=== PATIENT | female | born 1935 | race Two or more races ===

== ENCOUNTER 2018-03-04 11:20 | Inpatient (IN) | payer OTHER ==
[~2018-03-04] VITALS: Ht 157.5 cm; Wt 57.2 kg
[~2018-03-04 11:20] MED LIST: ACYCLOVIR800 MG PO; ZOVIRAX5 GM TP
[2018-03-04] MEDS ORDERED: METFORMIN HYDRO25 G1 (11:31)
[2018-03-04] MEDS ORDERED: PNEU16DI2 (11:32)
[2018-03-11] MEDS ORDERED: Diflucan 100MG TABLE PO (08:19)
[2018-03-11] MEDS ORDERED: Pulmicort 0.5 MG/2 M IH (08:20)
[2018-03-11] MEDS ORDERED: FAMOTIDINE20 MG/2 M1 IV (08:20)
[2018-03-11] MEDS ORDERED: Xopenex 1.25 MG/3 ML IH (08:20)
[2018-03-11] MEDS ORDERED: TUSSI-PRES LIQ118 ML PO (08:20)
[2018-03-11] MEDS ORDERED: BACTRIM DS TAB1 EACH PO (08:22)
== END 2018-03-11 12:20 | disposition home or self-care (01) | DRG 194 ==
LOC: ER 11:20 → MEDI 19:18
PROC: 4A033R1 Measurement of Arterial Saturation, Peripheral, Percutaneous Approach (ICD-10-PCS; principal; 2018-03-04)
DX: J18.1 Lobar pneumonia, unspecified organism (principal); J45.41 Moderate persistent asthma with (acute) exacerbation; D64.89 Other specified anemias; K27.7 Chronic peptic ulcer, site unspecified, without hemorrhage or perforation; E11.9 Type 2 diabetes mellitus without complications; I10 Essential (primary) hypertension; E04.1 Nontoxic single thyroid nodule; Z72.0 Tobacco use

== ENCOUNTER 2019-10-14 11:41 | Outpatient (CLI) | payer OTHER ==
[~2019-10-14 11:41] MED LIST changes: +BACTRIM DS TAB1 EACH PO; +Diflucan 100MG TABLE PO; +FAMOTIDINE20 MG/2 M1 IV; +METFORMIN HYDRO25 G1; +PNEU16DI2; +Pulmicort 0.5 MG/2 M IH; +TUSSI-PRES LIQ118 ML PO; +Xopenex 1.25 MG/3 ML IH
== END 2019-10-14 11:48 | disposition home or self-care (01) ==
LOC: EKG 11:41
PROVIDERS: ATTEND Internal Medicine Cardiovascular Disease
DX: I10 Essential (primary) hypertension (principal)

== ENCOUNTER 2020-05-18 12:05 | Inpatient (IN) | payer OTHER ==
[~2020-05-18] VITALS: Ht 154.9 cm; Wt 52.2 kg
[2020-05-19] MEDS ORDERED: AMLODIPINE BESYL5 MG (08:15)
[2020-05-19] MEDS ORDERED: BETAMETHASONE D30 ML (08:15)
[2020-05-19] MEDS ORDERED: METFORMIN HCL500 M4 (08:15)
[2020-05-19] MEDS ORDERED: LEVOTHYROXINE25 MC1 (08:15)
[2020-05-19] MEDS ORDERED: OMEPRAZOLE20 MG (08:16)
[2020-05-19] MEDS ORDERED: SIMVASTATIN40 MG (08:16)
[2020-05-19] MEDS ORDERED: MONTELUKAST SOD10 MG (08:16)
[2020-05-19] MEDS ORDERED: LEVALBUTER1.25 MG/3 IH (08:17)
[2020-05-19] MEDS ORDERED: BUDESONIDE0.5 MG/2 M (08:20)
[2020-05-19] MEDS ORDERED: FLUCONAZOLE100 MG (08:20)
== END 2020-05-20 09:16 | disposition home or self-care (01) | DRG 811 ==
LOC: SEC-K 12:05 → MEDI 12:05
PROVIDERS: ADMIT Internal Medicine Cardiovascular Disease; ATTEND Internal Medicine Cardiovascular Disease
PROC: 30233N1 Transfusion of Nonautologous Red Blood Cells into Peripheral Vein, Percutaneous Approach (ICD-10-PCS; principal; 2020-05-18)
DX: D64.89 Other specified anemias (principal); J18.9 Pneumonia, unspecified organism; E11.9 Type 2 diabetes mellitus without complications; Z79.4 Long term (current) use of insulin; K27.9 Peptic ulcer, site unspecified, unspecified as acute or chronic, without hemorrhage or perforation

== ENCOUNTER 2020-09-27 07:21 | Day surgery (SDC) | payer OTHER ==
[~2020-09-27 07:21] MED LIST changes: +AMLODIPINE BESYL5 MG; +BETAMETHASONE D30 ML; +BUDESONIDE0.5 MG/2 M; +FLUCONAZOLE100 MG; +LEVALBUTER1.25 MG/3 IH; +LEVOTHYROXINE25 MC1; +METFORMIN HCL500 M4; +MONTELUKAST SOD10 MG; +OMEPRAZOLE20 MG; +SIMVASTATIN40 MG
[2020-09-28] MEDS ORDERED: METFORMIN HCL500 M3 (12:34)
[2020-09-28] MEDS ORDERED: LEVO-T25 MCG (12:35)
== END 2020-09-27 13:35 | disposition home or self-care (01) ==
LOC: AMB-ENDOS 07:21
PROVIDERS: ATTEND Surgery
DX: D12.3 Benign neoplasm of transverse colon (principal); D12.4 Benign neoplasm of descending colon; D12.5 Benign neoplasm of sigmoid colon; K62.4 Stenosis of anus and rectum; Z20.822 Contact with and (suspected) exposure to COVID-19

== ENCOUNTER 2020-09-28 12:22 | Inpatient (IN) | payer OTHER ==
[~2020-09-28] VITALS: Ht 152.4 cm; Wt 54.4 kg
[2020-09-28] MEDS ORDERED: METFORMIN HCL500 M3 (12:34)
[2020-09-28] MEDS ORDERED: LEVO-T25 MCG (12:35)
== END 2020-10-01 16:41 | disposition home or self-care (01) | DRG 390 ==
LOC: ER → SURH 22:37 → SURG 22:37 → SURH 09-29 01:41
PROVIDERS: ADMIT Surgery; ATTEND Surgery
PROC: BW2110Z Computerized Tomography (CT Scan) of Abdomen and Pelvis using Low Osmolar Contrast, Unenhanced and Enhanced (ICD-10-PCS; principal; 2020-09-29)
DX: K56.699 Other intestinal obstruction unspecified as to partial versus complete obstruction (principal); R10.9 Unspecified abdominal pain; Z20.822 Contact with and (suspected) exposure to COVID-19; I10 Essential (primary) hypertension; E11.9 Type 2 diabetes mellitus without complications

== ENCOUNTER 2023-07-08 16:03 | Inpatient (IN) | payer OTHER ==
[~2023-07-08] VITALS: Ht 157.5 cm; Wt 45.4 kg
[~2023-07-08 16:03] MED LIST changes: +LEVO-T25 MCG; +METFORMIN HCL500 M3
--- NOTE | 2023-07-08 16:29 | NUR ---
PACIENTE ALERTA Y ORIENTADA X 3. REFIERE HACE 1 MES DOLOR ABDOMINAL POR DIVERTICULOS Y DESDE ESTELLA VOMITOS Y DIARREAS X 1.
[2023-07-08] MEDS ORDERED: KETOROLAC TROMETHAMINE 15 MG VIAL IV ONE (17:00)
[2023-07-08] MEDS ORDERED: 0.9 % SODIUM CHLORIDE 1,000 ML IV ONE (17:00)
[2023-07-08] MEDS ORDERED: FAMOTIDINE/PF 20 MG/2 ML VIAL IV ONE (17:00)
[2023-07-08 17:11] LABS: HEMOGLOBIN 11.1 g/dL (12.0-15.00); MEAN CELL VOLUME 72.5 fL (80.00-100.00); MEAN CORPUSCULAR HEMOGLOBIN 23.6 pg (27.00-32.0); MEAN CORPUSCULAR HGB CONC 32.5 g/dl (32.0-36.0); PLATELET COUNT 506 K/uL (150-450); RED BLOOD COUNT 4.69 M/uL (4.00-6.00); RED CELL DISTRIBUTION WIDTH 20.3 % (11.5-14.5)
--- NOTE | 2023-07-08 17:20 | NUR ---
SE LE ORIENTA A PTE SOBRE TRATAMIENTO E INSTRUCCIONES A SEGUIR, YVONNE REFIERE ENTENDER. SE COLECTA MUESTRAS, SE CANALIZA Y SE ADMINISTRA MEDICAMENTO KLEBER ORDEN MEDICA
[2023-07-08 17:40] LABS: ALBUMIN 1.9 gm/dL (3.4-5.0); ALKALINE PHOSPHATASE 100 U/L (50-136); AMYLASE 22 U/L (25-115); ANION GAP 6 (10.0-20.0); AST/SGOT 15 U/L (15-37); BILIRUBIN TOTAL 0.42 mg/dL (0.3-1.2); BLOOD UREA NITROGEN 20 mg/dL (7-18); BUN CREA RATIO 33 (7.0-25.0); CALCIUM 8.4 mg/dL (8.5-10.1); CARBON DIOXIDE 29 mEq/L (21-32); CHLORIDE 102 mmol/L (98-107); GFR 95.01; GLOBULINA 5.8 G/DL (2.4-3.5); GLUCOSE FASTING 105 mg/dL (65-100); LIPASE 8 U/L (13-75); OSMOLALITY SERUM 271 MOSM/KG (275-295); POTASSIUM 3.07 mEq/L (3.5-5.1); SODIUM 134 mmol/L (136-145); TOTAL PROTEIN 7.7 gm/dL (6.4-8.2)
[2023-07-08 17:41] LABS: ALT/SGPT < 6 U/L (12-78)
[2023-07-08 17:50] LABS: INR 1.17; PARTIAL THROMBOPLASTIN TIME 32.2 SECONDS (22.0-34.0); PROTHROMBIN TIME 12.1 SECONDS (9.0-11.5)
[2023-07-08 19:14] LABS: PH,URINE 5.5 (5.0-8.0); URINE APPEARANCE Clear; URINE BACTERIA 62.9 uL (0.0-1933); URINE BILIRRUBIN Negative (NEGATIVE); URINE BLOOD Negative; URINE COLOR Dark Yellow; URINE EPITHELIAL CELLS 9.8 uL (0.0-38.8); URINE GLUCOSE Negative (NEGATIVE); URINE LEUKOCYTE Trace; URINE NITRATE Negative; URINE PROTEIN 30 (NEGATIVE); URINE RBC 26.7 uL (0.0-20.8); URINE WBC 19.9 uL (0.0-23.2)
[2023-07-08] MEDS ORDERED: PIPERACILLIN/TAZOBACTAM SODIUM 3.375 GM VIAL IV ONE (23:15)
[2023-07-08] MEDS ORDERED: 0.9 % SODIUM CHLORIDE 1,000 ML IV SCH (23:15)
[2023-07-08] MEDS ORDERED: INSULIN LISPRO 1,000 UNIT/10 ML UNITS SUBCUTANEO PRN (23:30)
[2023-07-08] MEDS ORDERED: MEPERIDINE HCL/PF 25 MG/ML VIAL IM PRN (23:30)
[2023-07-08] MEDS ORDERED: ONDANSETRON HCL 4 MG in 0.9 % SODIUM CHLORIDE 50 ML IV PRN (23:30)
[2023-07-08] MEDS ORDERED: ACETAMINOPHEN 500 MG GEL..CAP PO PRN (23:30)
[2023-07-08] MEDS ORDERED: DEXTROSE 50 % IN WATER 0.5 G/ML DISP.SYRIN IV PRN (23:30)
[2023-07-09] MEDS ORDERED: PIPERACILLIN/TAZOBACTAM SODIUM 3.375 GM in DEXTROSE 5 % IN WATER 100 ML IV SCH
[2023-07-09] MEDS ORDERED: LEVOTHYROXINE SODIUM 25 MCG TABLET PO SCH (06:00)
[2023-07-09] MEDS ORDERED: FAMOTIDINE/PF 20 MG/2 ML VIAL ONE (07:44)
[2023-07-09] MEDS ORDERED: FAMOTIDINE/PF 20 MG in 0.9 % SODIUM CHLORIDE 8 ML IV PUSH SCH (09:00)
[2023-07-09] MEDS ORDERED: ENOXAPARIN SODIUM 40 MG/0.4 ML SYRINGE SUBCUTANEO SCH (09:00)
[2023-07-09] MEDS ORDERED: AMLODIPINE BESYLATE 5 MG TABLET PO SCH (09:00)
[2023-07-09] MEDS ORDERED: ENALAPRILAT DIHYDRATE 1.25 MG/ML VIAL IV PRN (15:30)
[2023-07-09 15:48] LABS: CALCIUM 7.8 mg/dL (8.5-10.1); CHOL HDL RATIO 2.3 (0-5.0); CREATININE SERUM 0.36 mg/dL (0.55-1.02); GFR 171.31
[2023-07-09 16:46] LABS: PH,URINE 5.5 (5.0-8.0); URINE APPEARANCE Clear; URINE BILIRRUBIN Negative (NEGATIVE); URINE BLOOD Negative; URINE COLOR Yellow; URINE GLUCOSE Negative (NEGATIVE); URINE LEUKOCYTE Moderate; URINE NITRATE Negative; URINE PROTEIN Negative (NEGATIVE)
[2023-07-09 16:47] LABS: URINE BACTERIA 28.9 uL (0.0-1933); URINE EPITHELIAL CELLS 10.9 uL (0.0-38.8); URINE RBC 9.9 uL (0.0-20.8); URINE WBC 63.5 uL (0.0-23.2)
[2023-07-09 16:54] LABS: POTASSIUM 2.89 mEq/L (3.5-5.1)
[2023-07-09] MEDS ORDERED: SIMVASTATIN 40 MG TABLET PO SCH (17:00)
[2023-07-09] MEDS ORDERED: VANCOMYCIN HCL 5 MG/ML REDILUIDO IV SCH (17:00)
[2023-07-09] MEDS ORDERED: AA 4.25%/CAL/LYTES/DEXT 5% 1,000 ML PERIFERAL SCH (17:00)
[2023-07-09] MEDS ORDERED: POTASSIUM CHLORIDE 20MEQ/100ML H2O PB IV STA (18:13)
[2023-07-10 07:54] LABS: HEMATOCRIT 32.3 % (36.0-45.00); HEMOGLOBIN 10.3 g/dL (12.0-15.00); MEAN CELL VOLUME 71.9 fL (80.00-100.00); PLATELET COUNT 437 K/uL (150-450); RED CELL DISTRIBUTION WIDTH 20.2 % (11.5-14.5)
[2023-07-10 08:27] LABS: ALBUMIN 1.8 gm/dL (3.4-5.0); ALKALINE PHOSPHATASE 87 U/L (50-136); ANION GAP 8 (10.0-20.0); AST/SGOT 8 U/L (15-37); BILIRUBIN TOTAL 0.45 mg/dL (0.3-1.2); BLOOD UREA NITROGEN 11 mg/dL (7-18); BUN CREA RATIO 28 (7.0-25.0); CALCIUM 7.8 mg/dL (8.5-10.1); CARBON DIOXIDE 29 mEq/L (21-32); CHLORIDE 105 mmol/L (98-107); CREATININE SERUM 0.39 mg/dL (0.55-1.02); GLOBULINA 4.4 G/DL (2.4-3.5); GLUCOSE FASTING 73 mg/dL (65-100); OSMOLALITY SERUM 276 MOSM/KG (275-295); POTASSIUM 3.23 mEq/L (3.5-5.1); SODIUM 139 mmol/L (136-145); TOTAL PROTEIN 6.2 gm/dL (6.4-8.2)
[2023-07-10 08:28] LABS: ALT/SGPT < 6 U/L (12-78); C-REACTIVE PROTEIN 7.56 MG/DL (0.00-0.29)
[2023-07-10] MEDS ORDERED: FAMOTIDINE/PF 20 MG/2 ML VIAL ONE (08:44)
[2023-07-10] MEDS ORDERED: POTASSIUM CHLORIDE 20MEQ/100ML H2O PB IV ONE (09:00)
[2023-07-10] MEDS ORDERED: MAGNESIUM SULFATE IN WATER 50 ML IV ONE (09:00)
[2023-07-10] MEDS ORDERED: DEXTROSE 10 % IN WATER 1,000 ML IV SCH (13:15)
[2023-07-11] MEDS ORDERED: SOD FERRIC GLUC COMPLX/SUCROSE 62.5 MG in 0.9 % SODIUM CHLORIDE 50 ML IV SCH (09:00)
[2023-07-11] MEDS ORDERED: Cyanocobalamin/Mecobalamin 1 TAB.SL SL SCH (09:00)
[2023-07-11] MEDS ORDERED: TRAMADOL HCL 50 MG TABLET PO PRN (16:45)
[2023-07-11 20:18] LABS: MEAN CELL VOLUME 72.8 fL (80.00-100.00); MEAN CORPUSCULAR HGB CONC 33.1 g/dl (32.0-36.0); PLATELET COUNT 376 K/uL (150-450); RED BLOOD COUNT 2.91 M/uL (4.00-6.00); RED CELL DISTRIBUTION WIDTH 19.9 % (11.5-14.5)
[2023-07-11 20:40] LABS: HEMATOCRIT 21.2 % (36.0-45.00)
[2023-07-11] MEDS ORDERED: PANTOPRAZOLE SODIUM 40 MG/VIAL VIAL IV STA ×2 (20:51→21:21)
[2023-07-11] MEDS ORDERED: AMINOCAPROIC ACID 250 MG/ML VIAL IV STA (20:52)
[2023-07-11] MEDS ORDERED: PANTOPRAZOLE SODIUM 40 MG/VIAL VIAL IV SCH (21:00)
[2023-07-12 05:19] LABS: ERYTHROCYTE SEDIMENTATION RATE 65 mm/hr
[2023-07-12 05:31] LABS: MEAN CELL VOLUME 72.7 fL (80.00-100.00); MEAN CORPUSCULAR HGB CONC 32.5 g/dl (32.0-36.0); PLATELET COUNT 302 K/uL (150-450); RED BLOOD COUNT 2.45 M/uL (4.00-6.00); RED CELL DISTRIBUTION WIDTH 20.3 % (11.5-14.5)
[2023-07-12 05:40] LABS: HEMATOCRIT 17.8 % (36.0-45.00); HEMOGLOBIN 5.8 g/dL (12.0-15.00); MEAN CORPUSCULAR HEMOGLOBIN 23.6 pg (27.00-32.0)
[2023-07-12 05:44] LABS: CALCIUM 7.1 mg/dL (8.5-10.1); CREATININE SERUM 0.63 mg/dL (0.55-1.02); GFR 89.81; MAGNESIUM 1.9 mg/dL (1.8-2.4); PHOSPHOROUS 2.3 mg/dL (2.5-4.9)
[2023-07-12 07:13] LABS: POTASSIUM 2.82 mEq/L (3.5-5.1)
[2023-07-12 07:14] LABS: C-REACTIVE PROTEIN 8.98 MG/DL (0.00-0.29)
[2023-07-12] MEDS ORDERED: NOREPINEPHRINE BITARTRATE 8 MG in DEXTROSE 5 % IN WATER 250 ML IV SCH (07:30)
[2023-07-12] MEDS ORDERED: POTASSIUM CHLORIDE 20MEQ/100ML H2O PB IV ONE (07:30)
[2023-07-12] MEDS ORDERED: NOREPINEPHRINE BITARTRATE 1 MG/ML AMPUL IV ONE (07:35)
[2023-07-12] MEDS ORDERED: POTASSIUM PHOS,M-BASIC-D-BASIC 3 MM/ML VIAL IV ONE (12:00)
[2023-07-12] MEDS ORDERED: SODIUM CHLORIDE 0.45 % 1,000 ML IV SCH (20:00)
[2023-07-13 07:23] LABS: URINE APPEARANCE Clear; URINE BILIRRUBIN Negative (NEGATIVE); URINE BLOOD Negative; URINE COLOR Yellow; URINE GLUCOSE Negative (NEGATIVE); URINE LEUKOCYTE Negative; URINE NITRATE Negative; URINE PROTEIN Negative (NEGATIVE); URINE UROBILINOGEN 0.2 E.U./dl
[2023-07-13 07:26] LABS: URINE EPITHELIAL CELLS 2.7 uL (0.0-38.8)
[2023-07-13] MEDS ORDERED: FAMOTIDINE/PF 20 MG/2 ML VIAL ONE (08:39)
[2023-07-13] MEDS ORDERED: CHLORHEXIDINE GLUCONATE 120 ML BOTTLE TOP ONE (10:34)
[2023-07-13 11:14] LABS: HEMATOCRIT 24.9 % (36.0-45.00); MEAN CELL VOLUME 77.2 fL (80.00-100.00); MEAN CORPUSCULAR HEMOGLOBIN 25.3 pg (27.00-32.0); MEAN CORPUSCULAR HGB CONC 32.9 g/dl (32.0-36.0); PLATELET COUNT 251 K/uL (150-450); RED BLOOD COUNT 3.23 M/uL (4.00-6.00); RED CELL DISTRIBUTION WIDTH 20.3 % (11.5-14.5)
[2023-07-13 11:15] LABS: HEMOGLOBIN 8.2 g/dL (12.0-15.00)
[2023-07-13] MEDS ORDERED: FUROsemide 20 MG/2 ML VIAL IV SCH (11:45)
[2023-07-14 19:18] LABS: HEMATOCRIT 30.4 % (36.0-45.00); HEMOGLOBIN 10.3 g/dL (12.0-15.00); MEAN CELL VOLUME 77.7 fL (80.00-100.00); MEAN CORPUSCULAR HEMOGLOBIN 26.3 pg (27.00-32.0); MEAN CORPUSCULAR HGB CONC 33.9 g/dl (32.0-36.0); PLATELET COUNT 254 K/uL (150-450); RED BLOOD COUNT 3.92 M/uL (4.00-6.00); RED CELL DISTRIBUTION WIDTH 18.8 % (11.5-14.5)
[2023-07-15 07:28] LABS: HEMATOCRIT 29.1 % (36.0-45.00); HEMOGLOBIN 9.8 g/dL (12.0-15.00); MEAN CELL VOLUME 76.9 fL (80.00-100.00); MEAN CORPUSCULAR HEMOGLOBIN 25.9 pg (27.00-32.0); MEAN CORPUSCULAR HGB CONC 33.7 g/dl (32.0-36.0); PLATELET COUNT 228 K/uL (150-450); RED BLOOD COUNT 3.79 M/uL (4.00-6.00); RED CELL DISTRIBUTION WIDTH 19.1 % (11.5-14.5)
[2023-07-15 07:58] LABS: INR 1.65
[2023-07-15 07:59] LABS: PARTIAL THROMBOPLASTIN TIME 39.9 SECONDS (22.0-34.0)
[2023-07-15 08:00] LABS: PROTHROMBIN TIME 16.7 SECONDS (9.0-11.5)
[2023-07-15 08:04] LABS: CALCIUM 7.6 mg/dL (8.5-10.1); GFR 319.09; MAGNESIUM 1.7 mg/dL (1.8-2.4); PHOSPHOROUS 2.6 mg/dL (2.5-4.9); POTASSIUM 3.24 mEq/L (3.5-5.1)
[2023-07-15 08:05] LABS: ALBUMIN 1.3 gm/dL (3.4-5.0); BILIRUBIN TOTAL 0.63 mg/dL (0.3-1.2); BILIRUBIN,CONJUGATED 0.25 mg/dL (0.0-0.2); BILIRUBIN,UNCONJUGATED 0.38 mg/dL (0.0-0.6)
[2023-07-15 08:06] LABS: GLOBULINA 4.3 G/DL (2.4-3.5); TOTAL PROTEIN 5.6 gm/dL (6.4-8.2)
[2023-07-15 08:07] LABS: CREATININE SERUM 0.21 mg/dL (0.55-1.02)
[2023-07-15] MEDS ORDERED: PHYTONADIONE 10 MG/ML AMPUL IV SCH (09:00)
[2023-07-15 09:20] LABS: UREA CLEARANCE 41.6 ML/MIN
[2023-07-15 11:43] LABS: COL EPI 67 SECONDS (82-175)
[2023-07-15] MEDS ORDERED: MENTHOL/CETYLPYRD CL 1 LOZENGE MM SCH (13:00)
[2023-07-15] MEDS ORDERED: MIDAZOLAM HCL 2 MG/2 ML VIAL IV ONE (15:30)
[2023-07-15] MEDS ORDERED: fentaNYL CITRATE 50 MCG/ML AMPUL IV PUSH ONE (15:30)
[2023-07-16 06:48] LABS: HEMATOCRIT 28.5 % (36.0-45.00); HEMOGLOBIN 9.6 g/dL (12.0-15.00); MEAN CELL VOLUME 76.7 fL (80.00-100.00); MEAN CORPUSCULAR HEMOGLOBIN 25.8 pg (27.00-32.0); MEAN CORPUSCULAR HGB CONC 33.6 g/dl (32.0-36.0); PLATELET COUNT 245 K/uL (150-450); RED BLOOD COUNT 3.72 M/uL (4.00-6.00); RED CELL DISTRIBUTION WIDTH 18.9 % (11.5-14.5)
[2023-07-16 07:29] LABS: D DIMER 1.93 MG/L; INR 1.12; PARTIAL THROMBOPLASTIN TIME 33.4 SECONDS (22.0-34.0); PROTHROMBIN TIME 11.7 SECONDS (9.0-11.5)
[2023-07-16 07:36] LABS: CALCIUM 7.8 mg/dL (8.5-10.1); GFR 319.09; MAGNESIUM 1.8 mg/dL (1.8-2.4); PHOSPHOROUS 2.6 mg/dL (2.5-4.9); POTASSIUM 3.2 mEq/L (3.5-5.1)
[2023-07-16 07:37] LABS: CREATININE SERUM 0.21 mg/dL (0.55-1.02)
[2023-07-16] MEDS ORDERED: POTASSIUM CHLORIDE 20MEQ/100ML H2O PB IV ONE (08:00)
[2023-07-16] MEDS ORDERED: MAGNESIUM SULFATE/D5W 100 ML IV ONE (08:00)
[2023-07-16 08:19] LABS: PLATELET ESTIMATE NORMAL (NORMAL)
[2023-07-16] MEDS ORDERED: PANTOPRAZOLE SODIUM 40 MG/VIAL VIAL IV SCH (09:00)
[2023-07-17 06:24] LABS: HEMATOCRIT 29.8 % (36.0-45.00); HEMOGLOBIN 9.8 g/dL (12.0-15.00); MEAN CELL VOLUME 78.1 fL (80.00-100.00); MEAN CORPUSCULAR HEMOGLOBIN 25.6 pg (27.00-32.0); MEAN CORPUSCULAR HGB CONC 32.8 g/dl (32.0-36.0); RED BLOOD COUNT 3.82 M/uL (4.00-6.00); RED CELL DISTRIBUTION WIDTH 19.2 % (11.5-14.5)
[2023-07-17 06:54] LABS: CALCIUM 7.7 mg/dL (8.5-10.1); GFR 260.94; MAGNESIUM 1.8 mg/dL (1.8-2.4); PHOSPHOROUS 2.6 mg/dL (2.5-4.9); POTASSIUM 3.33 mEq/L (3.5-5.1)
[2023-07-17 06:55] LABS: CREATININE SERUM 0.25 mg/dL (0.55-1.02)
[2023-07-17 07:45] LABS: PLATELET COUNT 261 K/uL (150-450)
[2023-07-17] MEDS ORDERED: VANCOMYCIN HCL 5 MG/ML REDILUIDO IV SCH (21:00)
[2023-07-18] MEDS ORDERED: SOD FERRIC GLUC COMPLX/SUCROSE 62.5 MG in 0.9 % SODIUM CHLORIDE 50 ML IV SCH (09:00)
[2023-07-19 07:38] LABS: HEMATOCRIT 30.3 % (36.0-45.00); HEMOGLOBIN 10.1 g/dL (12.0-15.00); MEAN CELL VOLUME 78.8 fL (80.00-100.00); MEAN CORPUSCULAR HEMOGLOBIN 26.4 pg (27.00-32.0); MEAN CORPUSCULAR HGB CONC 33.5 g/dl (32.0-36.0); PLATELET COUNT 272 K/uL (150-450); RED BLOOD COUNT 3.85 M/uL (4.00-6.00); RED CELL DISTRIBUTION WIDTH 18.9 % (11.5-14.5)
[2023-07-19 07:39] LABS: ERYTHROCYTE SEDIMENTATION RATE 127 mm/hr
[2023-07-19 07:42] LABS: INR 1.08; PARTIAL THROMBOPLASTIN TIME 24.5 SECONDS (22.0-34.0); PROTHROMBIN TIME 11.3 SECONDS (9.0-11.5)
[2023-07-19 07:50] LABS: CALCIUM 7.7 mg/dL (8.5-10.1); MAGNESIUM 1.7 mg/dL (1.8-2.4); PHOSPHOROUS 2.7 mg/dL (2.5-4.9); POTASSIUM 3.3 mEq/L (3.5-5.1)
[2023-07-19 07:58] LABS: C-REACTIVE PROTEIN 13.9 MG/DL (0.00-0.29); CREATININE SERUM 0.28 mg/dL (0.55-1.02); GFR 228.96
[2023-07-19] MEDS ORDERED: MENTHOL/CETYLPYRD CL 1 LOZENGE MM PRN (17:00)
[2023-07-19] MEDS ORDERED: POTASSIUM CHLORIDE IN WATER 100 ML IV ONE (17:45)
[2023-07-20] MEDS ORDERED: FLUCONAZOLE IN NACL,ISO-OSM 50 ML IV SCH (14:52)
[2023-07-20] MEDS ORDERED: FLUCONAZOLE IN NACL,ISO-OSM 2 MG/ML ML IV SCH (17:00)
[2023-07-20] MEDS ORDERED: FLUCONAZOLE IN NACL,ISO-OSM 200 MG/100 ML PIGGYBAG IV SCH (17:49)
[2023-07-21] MEDS ORDERED: FLUCONAZOLE IN NACL,ISO-OSM 2 MG/ML ML IV SCH (17:00)
[2023-07-21] MEDS ORDERED: DIATRIZOATE MEGLUMINE, SODIUM 30 ML BOTTLE PO ONE (19:30)
[2023-07-22 07:39] LABS: INR 1.08; PROTHROMBIN TIME 11.3 SECONDS (9.0-11.5)
[2023-07-22 07:46] LABS: CHOL HDL RATIO 3.1 (0-5.0); MAGNESIUM 1.9 mg/dL (1.8-2.4)
[2023-07-22 07:54] LABS: HEMATOCRIT 29.6 % (36.0-45.00); HEMOGLOBIN 9.8 g/dL (12.0-15.00); MEAN CELL VOLUME 78.8 fL (80.00-100.00); MEAN CORPUSCULAR HEMOGLOBIN 26.1 pg (27.00-32.0); MEAN CORPUSCULAR HGB CONC 33.1 g/dl (32.0-36.0); PLATELET COUNT 325 K/uL (150-450); RED BLOOD COUNT 3.75 M/uL (4.00-6.00); RED CELL DISTRIBUTION WIDTH 18.7 % (11.5-14.5)
[2023-07-22 08:07] LABS: ERYTHROCYTE SEDIMENTATION RATE 122 mm/hr
[2023-07-22 08:27] LABS: ALBUMIN 1.4 gm/dL (3.4-5.0); BILIRUBIN TOTAL 0.24 mg/dL (0.3-1.2); CREATININE SERUM 0.36 mg/dL (0.55-1.02); GFR 171.31; GLOBULINA 4.9 G/DL (2.4-3.5); POTASSIUM 3.45 mEq/L (3.5-5.1); TOTAL PROTEIN 6.3 gm/dL (6.4-8.2)
[2023-07-22 08:33] LABS: C-REACTIVE PROTEIN 9.72 MG/DL (0.00-0.29)
[2023-07-22] MEDS ORDERED: POTASSIUM CHLORIDE 20MEQ/100ML H2O PB IV ONE (09:30)
[2023-07-22 10:09] LABS: UREA CLEARANCE 53.1 ML/MIN
[2023-07-22] MEDS ORDERED: VANCOMYCIN HCL 1,000 MG VIAL IV SCH (21:00)
[2023-07-25 07:08] LABS: HEMATOCRIT 29.8 % (36.0-45.00); HEMOGLOBIN 10.1 g/dL (12.0-15.00); MEAN CELL VOLUME 78.6 fL (80.00-100.00); MEAN CORPUSCULAR HEMOGLOBIN 26.7 pg (27.00-32.0); PLATELET COUNT 381 K/uL (150-450); RED BLOOD COUNT 3.79 M/uL (4.00-6.00); RED CELL DISTRIBUTION WIDTH 19.1 % (11.5-14.5)
[2023-07-25 07:32] LABS: CALCIUM 7.9 mg/dL (8.5-10.1); MAGNESIUM 1.7 mg/dL (1.8-2.4); PHOSPHOROUS 2.5 mg/dL (2.5-4.9); POTASSIUM 3.86 mEq/L (3.5-5.1)
[2023-07-25 07:36] LABS: C-REACTIVE PROTEIN 7.82 MG/DL (0.00-0.29); CREATININE SERUM 0.26 mg/dL (0.55-1.02); GFR 249.39
[2023-07-25] MEDS ORDERED: MAGNESIUM SULFATE IN WATER 50 ML IV ONE (08:15)
[2023-07-25] MEDS ORDERED: LACTOBACILLUS ACIDOPHILUS 1 CAP CAP PO SCH (17:00)
[2023-07-25] MEDS ORDERED: CEFTRIAXONE SODIUM 2,000 MG VIAL IV SCH (17:00)
[2023-07-25] MEDS ORDERED: METRONIDAZOLE/SODIUM CHLORIDE 500 MG/100 ML PIGGYBACK IV SCH (21:00)
[2023-07-26] MEDS ORDERED: ANIDULAFUNGIN 100 MG VIAL IV SCH (17:00)
[2023-07-27] MEDS ORDERED: ANIDULAFUNGIN 100 MG VIAL IV SCH (12:00)
[2023-07-29 07:03] LABS: HEMOGLOBIN 10.6 g/dL (12.0-15.00); MEAN CELL VOLUME 76.9 fL (80.00-100.00); MEAN CORPUSCULAR HEMOGLOBIN 25.4 pg (27.00-32.0); MEAN CORPUSCULAR HGB CONC 33.1 g/dl (32.0-36.0); PLATELET COUNT 416 K/uL (150-450); RED BLOOD COUNT 4.16 M/uL (4.00-6.00); RED CELL DISTRIBUTION WIDTH 19.8 % (11.5-14.5)
[2023-07-29 07:11] LABS: INR 1.14; PARTIAL THROMBOPLASTIN TIME 25.2 SECONDS (22.0-34.0); PROTHROMBIN TIME 11.9 SECONDS (9.0-11.5)
[2023-07-29 07:21] LABS: TOTAL IRON BINDING CAPACITY 173 ug/dl (250-450)
[2023-07-29 07:25] LABS: ALBUMIN 1.7 gm/dL (3.4-5.0); ALKALINE PHOSPHATASE 74 U/L (50-136); ANION GAP 10 (10.0-20.0); AST/SGOT 10 U/L (15-37); BILIRUBIN TOTAL 0.26 mg/dL (0.3-1.2); BILIRUBIN,CONJUGATED < 0.10 mg/dL (0.0-0.2); BILIRUBIN,UNCONJUGATED 0.16 mg/dL (0.0-0.6); BLOOD UREA NITROGEN 9 mg/dL (7-18); CALCIUM 8.3 mg/dL (8.5-10.1); CARBON DIOXIDE 27 mEq/L (21-32); CHLORIDE 100 mmol/L (98-107); CHOL HDL RATIO 2.8 (0-5.0); CHOLESTEROL 86 mg/dL (0-200); GLOBULINA 4.2 G/DL (2.4-3.5); GLUCOSE FASTING 116 mg/dL (65-100); HDL 31 mg/dl (40-60); LDL 40 mg/dl (0-130); OSMOLALITY SERUM 266 MOSM/KG (275-295); POTASSIUM 4.17 mEq/L (3.5-5.1); SODIUM 133 mmol/L (136-145); TOTAL PROTEIN 5.9 gm/dL (6.4-8.2); TRIGLYCERIDES 76 mg/dL (0-150); VLDL 15 (0-39)
[2023-07-29 07:30] LABS: ALT/SGPT < 6 U/L (12-78); BUN CREA RATIO 33 (7.0-25.0); GFR 238.76
[2023-07-29 07:31] LABS: CREATININE SERUM 0.27 mg/dL (0.55-1.02)
[2023-07-29 09:37] LABS: UREA CLEARANCE 45.3 ML/MIN
[2023-07-29] MEDS ORDERED: DIATRIZOATE MEGLUMINE, SODIUM 30 ML BOTTLE PO ONE (16:00)
[2023-07-29] MEDS ORDERED: AA 4.25%/CAL/LYTES/DEXT 5% 1,000 ML PERIFERAL SCH (17:00)
[2023-07-29] MEDS ORDERED: THIAMINE HCL 100 MG/ML 2 ML VIAL IV SCH (17:01)
[2023-07-29] MEDS ORDERED: MELATONIN 5 MG TABLET PO SCH (21:00)
[2023-07-30 07:08] LABS: HEMATOCRIT 30.9 % (36.0-45.00); HEMOGLOBIN 10.4 g/dL (12.0-15.00); MEAN CELL VOLUME 76.8 fL (80.00-100.00); MEAN CORPUSCULAR HEMOGLOBIN 25.9 pg (27.00-32.0); MEAN CORPUSCULAR HGB CONC 33.8 g/dl (32.0-36.0); PLATELET COUNT 419 K/uL (150-450); RED BLOOD COUNT 4.02 M/uL (4.00-6.00); RED CELL DISTRIBUTION WIDTH 19.2 % (11.5-14.5)
[2023-07-30 07:14] LABS: INR 1.25; PARTIAL THROMBOPLASTIN TIME 33.3 SECONDS (22.0-34.0)
[2023-07-30 07:18] LABS: ALBUMIN 1.7 gm/dL (3.4-5.0); ALKALINE PHOSPHATASE 73 U/L (50-136); ANION GAP 10 (10.0-20.0); AST/SGOT 10 U/L (15-37); BILIRUBIN TOTAL 0.32 mg/dL (0.3-1.2); BLOOD UREA NITROGEN 9 mg/dL (7-18); CARBON DIOXIDE 28 mEq/L (21-32); CHLORIDE 98 mmol/L (98-107); GLOBULINA 4.3 G/DL (2.4-3.5); GLUCOSE FASTING 118 mg/dL (65-100); OSMOLALITY SERUM 264 MOSM/KG (275-295); SODIUM 132 mmol/L (136-145)
[2023-07-30 07:20] LABS: ALT/SGPT < 6 U/L (12-78); BUN CREA RATIO 36 (7.0-25.0); CREATININE SERUM 0.25 mg/dL (0.55-1.02); GFR 260.94
[2023-07-30 07:23] LABS: PROTHROMBIN TIME 12.9 SECONDS (9.0-11.5)
[2023-07-30] MEDS ORDERED: SOD FERRIC GLUC COMPLX/SUCROSE 62.5 MG in 0.9 % SODIUM CHLORIDE 50 ML IV SCH (10:59)
[2023-07-30] MEDS ORDERED: 0.9 % SODIUM CHLORIDE 1,000 ML IV SCH (11:00)
[2023-07-31 12:05] LABS: CALCIUM 8.4 mg/dL (8.5-10.1); CREATININE SERUM 0.36 mg/dL (0.55-1.02); GFR 171.31; POTASSIUM 3.8 mEq/L (3.5-5.1)
[2023-08-01] MEDS ORDERED: PEPCID AC20 MG PO (11:49)
[2023-08-01] MEDS ORDERED: DICY20TA PO (11:50)
== END 2023-08-01 16:03 | disposition home or self-care (01) | DRG 392 ==
LOC: ER 16:03 → SURG 23:20 → SURH 07-11 17:46 → ICU 07-12 13:56 → MEDJ 07-25 20:10
PROVIDERS: General Practice; Internal Medicine; Internal Medicine Geriatric Medicine; Internal Medicine Infectious Disease; ADMIT Surgery; ATTEND Surgery
PROC: BW21YZZ Computerized Tomography (CT Scan) of Abdomen and Pelvis using Other Contrast (ICD-10-PCS; 2023-07-08)
PROC: B24BYZZ Ultrasonography of Heart with Aorta using Other Contrast (ICD-10-PCS; 2023-07-09)
PROC: 02HV33Z Insertion of Infusion Device into Superior Vena Cava, Percutaneous Approach (ICD-10-PCS; principal; 2023-07-10)
PROC: 3E0436Z Introduction of Nutritional Substance into Central Vein, Percutaneous Approach (ICD-10-PCS; 2023-07-10)
PROC: 30243N1 Transfusion of Nonautologous Red Blood Cells into Central Vein, Percutaneous Approach (ICD-10-PCS; 2023-07-12)
PROC: 0DJD8ZZ Inspection of Lower Intestinal Tract, Via Natural or Artificial Opening Endoscopic (ICD-10-PCS; 2023-07-15)
PROC: CD271ZZ Tomographic (Tomo) Nuclear Medicine Imaging of Gastrointestinal Tract using Technetium 99m (Tc-99m) (ICD-10-PCS; 2023-07-16)
PROC: CD271ZZ Tomographic (Tomo) Nuclear Medicine Imaging of Gastrointestinal Tract using Technetium 99m (Tc-99m) (ICD-10-PCS; 2023-07-16)
PROC: 0H97XZX Drainage of Abdomen Skin, External Approach, Diagnostic (ICD-10-PCS; 2023-07-22)
PROC: BW21YZZ Computerized Tomography (CT Scan) of Abdomen and Pelvis using Other Contrast (ICD-10-PCS; 2023-07-22)
PROC: BW21YZZ Computerized Tomography (CT Scan) of Abdomen and Pelvis using Other Contrast (ICD-10-PCS; 2023-07-29)
DX: K57.92 Diverticulitis of intestine, part unspecified, without perforation or abscess without bleeding (principal); K62.5 Hemorrhage of anus and rectum; D84.9 Immunodeficiency, unspecified; N39.0 Urinary tract infection, site not specified; K57.80 Diverticulitis of intestine, part unspecified, with perforation and abscess without bleeding; E11.9 Type 2 diabetes mellitus without complications; Z79.4 Long term (current) use of insulin; E03.9 Hypothyroidism, unspecified; I25.10 Atherosclerotic heart disease of native coronary artery without angina pectoris; I10 Essential (primary) hypertension; D64.9 Anemia, unspecified; F43.21 Adjustment disorder with depressed mood; B96.20 Unspecified Escherichia coli [E. coli] as the cause of diseases classified elsewhere; D12.5 Benign neoplasm of sigmoid colon; D12.4 Benign neoplasm of descending colon; D12.3 Benign neoplasm of transverse colon; D12.2 Benign neoplasm of ascending colon